=== PATIENT | female | born 1980 | race American Indian/Alaskan Native ===

== ENCOUNTER 2018-05-22 06:39 | Emergency (ER) | payer SELFPAY ==
[2018-05-22 06:43] VITALS: BMI 35.1
[2018-05-22 06:44] VITALS: TEMP 97.6
[2018-05-22] MEDS ORDERED: Sodium Chloride 0.9% 1,000 ML IV STA (07:18)
--- NOTE | 2018-05-22 07:36 | ED PDOC ---
HPI: Psych/Substance Abuse Time Seen by Provider: 05/22/18 07:05 Chief Complaint (Nursing): Alcohol Ingestion History Per: Patient, Other (brought EMS because she was found intoxicated.) History/Exam Limitations: clinical condition (patient intoxicated. on arrival she was uncooperative and aggressive. per staff she was spitting. ) Past Medical History Reviewed: Unable To Obtain Vital Signs: Last Vital Signs Temp 97.6 F 05/22/18 06:47 Pulse 96 H 05/22/18 06:47 Resp 17 05/22/18 06:47 BP 85/58 L 05/22/18 06:47 Pulse Ox 100 05/22/18 06:47 - Medical History PMH: Arthritis (both legs ?), Bipolar Disorder, Schizophrenia Denies: HIV, HTN, Chronic Kidney Disease, Seizures, Sexually Transmitted Disease - Family History Family History: States: Unknown Family Hx - Living Arrangements Living Arrangements: Other - Immunization History Hx Tetanus Toxoid Vaccination: No Hx Influenza Vaccination: No Hx Pneumococcal Vaccination: No - Home Medications Home Medications: Ambulatory Orders Medication Instructions Recorded Naproxen [Naprosyn] 1 tab PO BID PRN #20 tab 09/23/16 Polyethylene Glycol 3350 [Miralax] 17 gm PO DAILY #7 packet 09/23/16 Famotidine [Pepcid] 40 mg PO DAILY #20 tablet 11/08/16 - Allergies Allergies/Adverse Reactions: Allergies Allergy/AdvReac Type Severity Reaction Status Date / Time No Known Allergies Allergy Verified 05/22/18 06:49 Review of Systems Review Of Systems: ROS cannot be obtained secondary to pt's inabilty to answer questions. Physical Exam - Reviewed Nursing Documentation Reviewed: Yes Vital Signs Reviewed: Yes - Physical Exam Appears: Positive for: Well, No Acute Distress Head Exam: Positive for: ATRAUMATIC, NORMAL INSPECTION Skin: Positive for: Warm Eye Exam: Positive for: EOMI, PERRL Neck: Positive for: Supple Cardiovascular/Chest: Positive for: Regular Rate, Rhythm Respiratory: Positive for: CNT, Normal Breath Sounds Gastrointestinal/Abdominal: Positive for: Soft Extremity: Positive for: Normal ROM - Laboratory Results Result Diagrams: 05/22/18 08:00 05/22/18 08:00 - ECG O2 Sat by Pulse Oximetry: 100 - Progress Re-evaluation Time: 14:53 Condition: Improved Medical Decision Making Medical Decision Making: patient now steady in ambulation. Cooperative. Disposition - Clinical Impression Clinical Impression: Alcohol intoxication - Patient ED Disposition Is Patient to be Admitted: No Doctor Will See Patient In The: Office Counseled Patient/Family Regarding: Diagnosis, Need For Followup - Disposition Referrals: [facility] [Outside] Disposition: Routine/Home Disposition Time: 14:54 Condition: IMPROVED Instructions: Alcohol Abuse and Alcoholism (DC) Forms: [facility] (Polish) - POA Present On Arrival: None
[2018-05-22 08:14] LABS: BASO # 0.1 K/uL (0.0-0.2); EOS # 0.1 K/uL (0.0-0.7); EOS % 1.2 % (0.0-4.0); HEMOGLOBIN 12.6 g/dL (12.0-16.0); LYMPH # 1.5 K/uL (1.0-4.3); LYMPH % 26.6 % (20.0-40.0); MEAN CELL VOLUME 91.2 fl (81.0-99.0); MEAN CORPUSCULAR HEMOGLOBIN 28.2 pg (27.0-31.0); MEAN CORPUSCULAR HGB CONC 30.9 g/dL (33.0-37.0); MEAN PLATELET VOLUME 10.3 fl (7.2-11.7); MONO # 0.6 K/uL (0.0-0.8); MONO % 10.3 % (0.0-10.0); NEUT # 3.5 K/uL (1.8-7.0); NEUT % 60.9 % (50.0-75.0); NRBC % 0.2 % (0.0-0.0); RBC 4.47 Mil/uL (3.80-5.20); RED CELL DISTRIBUTION WIDTH 18.2 % (11.5-14.5); WHITE BLOOD COUNT 5.7 K/uL (4.8-10.8)
[2018-05-22 08:37] LABS: BLOOD UREA NITROGEN 12 mg/dl (7-17); CALCIUM 8.9 mg/dL (8.4-10.2); GFR NON-AFRICAN AMERICAN > 60
[2018-05-22 09:46] LABS: BARBITURATES, UR NEGATIVE (NEGATIVE); BENZODIAZEPINES, UR NEGATIVE (NEGATIVE); OPIATES, UR NEGATIVE (NEGATIVE); PHENCYCLIDINE, UR NEGATIVE (NEGATIVE)
[2018-05-22 16:35] VITALS: BP 132/84; PULSE 78; RESP 18; O2SAT 99
== END 2018-05-22 15:50 | disposition home or self-care (01) ==
LOC: H.ER 06:39
DX: F10.129 Alcohol abuse with intoxication, unspecified (principal)
CPT/HCPCS: 80048; 81025; 85025; 96372; 99285; G0480; J1630; J2060

== ENCOUNTER 2018-07-30 00:08 | Emergency (ER) | payer OTHER ==
[2018-07-30 00:08] VITALS: BMI 34.7
[2018-07-30 00:17] VITALS: RESP 16
[2018-07-30] MEDS ORDERED: Sodium Chloride 0.9% 1,000 ML IV STA (00:22)
--- NOTE | 2018-07-30 00:56 | ED PDOC ---
HPI: Influenza Time Seen by Provider: 07/30/18 00:20 Chief Complaint: Abdominal Pain Chief Complaint (Provider): Abdominal Pain History Per: Patient Exam Limitations: no limitations Symptoms include: cough, vomiting, diarrhea Additional complaint(s):: 37 y/o female, with no significant PMHx presents to the ED complaining of flu-like symptoms, onset x2 days ago. Patient reports having a cough associated with vomiting and diarrhea for x2 days. Patient reports having 10 episodes of vomiting as well as diarrhea. She is unsure if she saw a small amount of blood in either diarrhea or vomit. Patient also reports abdominal pain at times. She reports feeling dehydrated. Past Medical History Vital Signs: Last Vital Signs Temp 97.6 F 07/30/18 00:14 Pulse 90 07/30/18 00:14 Resp 16 07/30/18 00:14 BP 123/83 07/30/18 00:14 Pulse Ox 100 07/30/18 00:14 - Medical History PMH: Anxiety, Bipolar Disorder, HTN Denies: Diabetes, Hepatitis, HIV, Chronic Kidney Disease, Seizures, Sexually Transmitted Disease - Surgical History Surgical History: (x2) - Family History Family History: States: Unknown Family Hx, Diabetes - Social History Current smoker - smoking cessation education provided: Yes Alcohol: None Drugs: Denies - Immunization History Hx Tetanus Toxoid Vaccination: Yes Hx Influenza Vaccination: Yes Hx Pneumococcal Vaccination: Yes - Home Medications Home Medications: Ambulatory Orders Medication Instructions Recorded oxyCODONE/Acetaminophen [Percocet 1 tab PO Q6 #10 tab 05/28/17 5/325 mg Tab] Oseltamivir Phosphate [Tamiflu] 75 mg PO BID #10 capsule 07/27/17 Ondansetron ODT [Zofran ODT] 4 mg PO Q8 PRN #12 odt 08/07/17 Dicyclomine [Bentyl] 20 mg PO Q12 PRN #20 tab 08/16/17 Ondansetron ODT [Zofran ODT] 4 mg PO Q6H PRN #8 odt 08/16/17 Oseltamivir Phosphate [Tamiflu] 75 mg PO BID 5 Days capsule 09/03/17 Cephalexin [cephalexin] 500 mg PO BID 7 Days cap 04/03/18 Ibuprofen [Motrin] 600 mg PO TID 7 Days tab 04/03/18 Dicyclomine [Bentyl] 20 mg PO Q12 PRN #20 tab 07/30/18 Ondansetron ODT [Zofran ODT] 4 mg PO Q6 PRN #8 odt 07/30/18 Oseltamivir Cap [Tamiflu] 75 mg PO BID #10 cap 07/30/18 - Allergies Allergies/Adverse Reactions: Allergies Allergy/AdvReac Type Severity Reaction Status Date / Time No Known Allergies Allergy Verified 07/30/18 00:14 Review of Systems ROS Statement: Except As Marked, All Systems Reviewed And Found Negative Respiratory: Positive for: Cough Gastrointestinal: Positive for: Vomiting, Abdominal Pain, Diarrhea Physical Exam - Reviewed Nursing Documentation Reviewed: Yes Vital Signs Reviewed: Yes - Physical Exam Appears: Positive for: Well, Non-toxic, No Acute Distress Head Exam: Positive for: ATRAUMATIC, NORMOCEPHALIC Skin: Positive for: Normal Color, Warm, Dry Eye Exam: Positive for: EOMI, Normal appearance, PERRL ENT: Positive for: Other (dry mucous membranes) Cardiovascular/Chest: Positive for: Regular Rate, Rhythm. Negative for: Murmur Respiratory: Positive for: Normal Breath Sounds. Negative for: Respiratory Distress Gastrointestinal/Abdominal: Positive for: Normal Exam, Soft. Negative for: Tenderness Extremity: Positive for: Normal ROM. Negative for: Pedal Edema, Deformity Neurologic/Psych: Positive for: Alert, Oriented. Negative for: Motor/Sensory Deficits Medical Decision Making Medical Decision Making: Time: 00:22 Initial Impression: 37 y/o female with flu-like symptoms Initial Plan: * CMP * Lipase * Urine preg * ED Urine * CBC w/ diff * CXR * Bentyl 20 mg * IV Fluids * Zofran 4 mg * Influenza A B * UA 02:59 Labs reviewed significant for patient being flu positive. CXR shows no active disease. Patient reports improvement of symptoms and is stable upon discharge. Diagnosis is influenza and gastroenteritis. Scribe Attestation: Documented by Cristo Caraballo acting as a scribe for Santy Cool MD. Provider Scribe Attestation: All medical record entries made by the Scribe were at my direction and personally dictated by me. I have reviewed the chart and agree that the record accurately reflects my personal performance of the history, physical exam, medical decision making, and the department course for this patient. I have also personally directed, reviewed, and agree with the discharge instructions and disposition. - Laboratory Results Result Diagrams: 07/30/18 00:50 07/30/18 00:50 - ECG O2 Sat by Pulse Oximetry: 100 Disposition - Clinical Impression Clinical Impression: Influenza, Gastroenteritis - Patient ED Disposition Is Patient to be Admitted: No - Disposition Disposition: Routine/Home Disposition Time: 02:59 Condition: STABLE Additional Instructions: [facility], thank you for letting us take care of you today. Your provider was Santy Cool MD and you were treated for FLU LIKE SYMPTOMS. The emergency medical care you received today was directed at your acute symptoms. If you were prescribed any medication, please fill it and take as directed. It may take several days for your symptoms to resolve. Return to the Emergency Department if your symptoms worsen, do not improve, or if you have any other problems. Please contact your doctor or call one of the physicians/clinics you have been referred to that are listed on the Patient Visit Information form that is included in your discharge packet. Bring any paperwork you were given at discharge with you along with any medications you are taking to your follow up visit. Our treatment cannot replace ongoing medical care by a primary care provider outside of the emergency department. Thank you for allowing the [facility] team to be part of your care today. If you had an X-Ray or CT scan: A Radiologist will review the ED reading if any change in treatment is needed we will contact you. If you had a blood, urine, or wound culture: It will take several days for the results, if any change in treatment is needed we will contact you. If you had an STI test: It will take 48 hours for the results. Please call after 1 week if you have not heard back. Prescriptions: Dicyclomine [Bentyl] 20 mg PO Q12 PRN #20 tab PRN Reason: abdominal pain/diarrhea Ondansetron ODT [Zofran ODT] 4 mg PO Q6 PRN #8 odt PRN Reason: Nausea/Vomiting Oseltamivir Cap [Tamiflu] 75 mg PO BID #10 cap Instructions: Flu, Viral Gastroenteritis Forms: [facility] (Persian)
[2018-07-30 01:11] LABS: BASO % 0.5 % (0.0-2.0); EOS # 0.1 K/uL (0.0-0.7); EOS % 2.5 % (0.0-4.0); HEMOGLOBIN 11.8 g/dL (12.0-16.0); LYMPH % 21.2 % (20.0-40.0); MEAN CELL VOLUME 88.6 fl (81.0-99.0); MEAN CORPUSCULAR HEMOGLOBIN 29.1 pg (27.0-31.0); MEAN CORPUSCULAR HGB CONC 32.9 g/dL (33.0-37.0); MEAN PLATELET VOLUME 10.2 fl (7.2-11.7); MONO # 0.3 K/uL (0.0-0.8); NEUT # 3.1 K/uL (1.8-7.0); NEUT % 68.8 % (50.0-75.0); RBC 4.04 Mil/uL (3.80-5.20); RED CELL DISTRIBUTION WIDTH 16.1 % (11.5-14.5); WHITE BLOOD COUNT 4.5 K/uL (4.8-10.8)
[2018-07-30 01:29] LABS: ALB/GLOB RATIO 1.1 (1.0-2.1); ALBUMIN 3.9 g/dL (3.5-5.0); ALT/SGPT 34 U/L (9-52); AST/SGOT 28 U/L (14-36); BLOOD UREA NITROGEN 12 mg/dl (7-17); CALCIUM 9.2 mg/dL (8.4-10.2); GFR NON-AFRICAN AMERICAN > 60; LIPASE 40 U/L (23-300)
[2018-07-30 06:36] VITALS: BP 105/46; PULSE 67; TEMP 98.8; O2SAT 96
--- NOTE | 2018-07-30 08:13 | RAD ---
Date of service: 07/30/2018 HISTORY: cough COMPARISON: 09/03/2017 TECHNIQUE: Chest PA and lateral FINDINGS: LUNGS: No active pulmonary disease. PLEURA: No significant pleural effusion identified. No pneumothorax apparent. CARDIOVASCULAR: No aortic atherosclerotic calcification present. Normal cardiac size. No pulmonary vascular congestion. OSSEOUS STRUCTURES: No significant abnormalities. VISUALIZED UPPER ABDOMEN: Normal. OTHER FINDINGS: None. IMPRESSION: No active disease. No interval pathology noted.
== END 2018-07-30 06:35 | disposition home or self-care (01) ==
LOC: H.ER 00:08 → MERGE 00:08 → H.ER 06:35
DX: K52.9 Noninfective gastroenteritis and colitis, unspecified (principal); J11.1 Influenza due to unidentified influenza virus with other respiratory manifestations; I10 Essential (primary) hypertension
CPT/HCPCS: 71046; 80053; 83690; 85025; 87804; 99285; J2405; J7030

== ENCOUNTER 2018-09-23 19:06 | Emergency (ER) | payer SELFPAY ==
[2018-09-23 19:06] VITALS: BMI 35.1
[2018-09-23 19:17] VITALS: BP 152/60; PULSE 71; RESP 16; TEMP 98; O2SAT 100
--- NOTE | 2018-09-23 21:22 | ED PDOC ---
HPI: Psych/Substance Abuse Time Seen by Provider: 09/23/18 19:24 Chief Complaint (Nursing): Alcohol Ingestion Chief Complaint (Provider): Alcohol Ingestion ED Caveat: Intoxicated History/Exam Limitations: intoxication Current Symptoms Are (Timing): Still Present Additional Complaint(s): Patient is a 37 year old female, who presents to the emergency department for public intoxication. Patient was found intoxicated and sleeping in bus. She admits to drinking alcohol and has been to the emergency department for alcohol intoxication in the past. Patient has slurred speech but other whaley has no complaints. PMD: No provider Past Medical History Reviewed: Historical Data, Nursing Documentation, Vital Signs Vital Signs: Last Vital Signs Temp 98 F 09/23/18 19:14 Pulse 71 09/23/18 19:14 Resp 16 09/23/18 19:14 BP 152/60 H 09/23/18 19:14 Pulse Ox 100 09/23/18 19:14 - Medical History PMH: Anxiety, Arthritis (both legs ?), Bipolar Disorder, Schizophrenia Denies: HIV, HTN, Chronic Kidney Disease, Seizures, Sexually Transmitted Dis ease - Surgical History Surgical History: (x2) - Family History Family History: States: Unknown Family Hx, Diabetes - Immunization History Hx Tetanus Toxoid Vaccination: No Hx Influenza Vaccination: No Hx Pneumococcal Vaccination: No - Home Medications Home Medications: Ambulatory Orders Medication Instructions Recorded Naproxen [Naprosyn] 1 tab PO BID PRN #20 tab 09/23/16 Polyethylene Glycol 3350 [Miralax] 17 gm PO DAILY #7 packet 09/23/16 Famotidine [Pepcid] 40 mg PO DAILY #20 tablet 11/08/16 oxyCODONE/Acetaminophen [Percocet 1 tab PO Q6 #10 tab 05/28/17 5/325 mg Tab] Oseltamivir Phosphate [Tamiflu] 75 mg PO BID #10 capsule 07/27/17 Ondansetron ODT [Zofran ODT] 4 mg PO Q8 PRN #12 odt 08/07/17 Dicyclomine [Bentyl] 20 mg PO Q12 PRN #20 tab 08/16/17 Ondansetron ODT [Zofran ODT] 4 mg PO Q6H PRN #8 odt 08/16/17 Oseltamivir Phosphate [Tamiflu] 75 mg PO BID 5 Days capsule 09/03/17 Cephalexin [cephalexin] 500 mg PO BID 7 Days cap 04/03/18 Ibuprofen [Motrin] 600 mg PO TID 7 Days tab 04/03/18 Dicyclomine [Bentyl] 20 mg PO Q12 PRN #20 tab 07/30/18 Ondansetron ODT [Zofran ODT] 4 mg PO Q6 PRN #8 odt 07/30/18 Oseltamivir Cap [Tamiflu] 75 mg PO BID #10 cap 07/30/18 Ibuprofen [Motrin] 600 mg PO Q6 #20 tab 08/08/18 Promethazine HCl/Codeine 5 ml PO HS #80 ml 08/08/18 [Prometh-Codein 6.25-10 mg/5 ml] Amoxicillin [Amoxil 500 mg Cap] 500 mg PO TID #20 cap 09/03/18 Naproxen [Naprosyn] 500 mg PO Q12 PRN #20 tablet 09/03/18 traMADol [Ultram] 50 mg PO Q8 PRN #10 tab 09/03/18 - Allergies Allergies/Adverse Reactions: Allergies Allergy/AdvReac Type Severity Reaction Status Date / Time No Known Allergies Allergy Verified 09/23/18 19:14 Review of Systems ROS Statement: Except As Marked, All Systems Reviewed And Found Negative Neurological: Positive for: Change in Speech, Other (intoxication) Physical Exam - Reviewed Nursing Documentation Reviewed: Yes Vital Signs Reviewed: Yes - Physical Exam Appears: Positive for: Non-toxic, No Acute Distress Head Exam: Positive for: ATRAUMATIC, NORMOCEPHALIC Skin: Positive for: Normal Color, Warm, Dry Eye Exam: Positive for: Normal appearance, EOMI, PERRL ENT: Positive for: Normal ENT Inspection Neck: Positive for: Normal, Painless ROM, Supple Cardiovascular/Chest: Positive for: Regular Rate, Rhythm. Negative for: Murmur Respiratory: Positive for: Normal Breath Sounds. Negative for: Respiratory Distress Gastrointestinal/Abdominal: Positive for: Normal Exam, Soft. Negative for: Tenderness Back: Positive for: Normal Inspection. Negative for: L CVA Tenderness, R CVA Tenderness, Vertebral Tenderness Extremity: Positive for: Normal ROM. Negative for: Pedal Edema, Deformity Neurologic/Psych: Positive for: Alert, Oriented, Other (slurred speech). Negative for: Motor/Sensory Deficits - ECG O2 Sat by Pulse Oximetry: 100 (RA) Pulse Ox Interpretation: Normal Medical Decision Making Medical Decision Making: Time: 1932 Impression: 37 year old intoxicated female. Will order labs and alcohol drug screen. Plan: --Accucheck --Alcohol serum --Glucose 02:35 Patient is clinically sober and stable for discharge. Diagnosis is alcohol intoxication. Scribe Attestation: Documented by Jovi Marcano, acting as a scribe for Santy Cool MD. Provider Scribe Attestation: All medical record entries made by the Scribe were at my direction and personally dictated by me. I have reviewed the chart and agree that the record accurately reflects my personal performance of the history, physical exam, medical decision making, and the department course for this patient. I have also personally directed, reviewed, and agree with the discharge instructions and disposition. Disposition - Clinical Impression Clinical Impression: Alcohol abuse with intoxication - Patient ED Disposition Is Patient to be Admitted: No - Disposition Disposition: Routine/Home Disposition Time: 02:35 Condition: STABLE Additional Instructions: [facility], thank you for letting us take care of you today. Your provider was Santy Cool MD and you were treated for ETOH. The emergency medical care you received today was directed at your acute symptoms. If you were prescribed any medication, please fill it and take as directed. It may take several days for your symptoms to resolve. Return to the Emergency Department if your symptoms worsen, do not improve, or if you have any other problems. Please contact your doctor or call one of the physicians/clinics you have been referred to that are listed on the Patient Visit Information form that is included in your discharge packet. Bring any paperwork you were given at discharge with you along with any medications you are taking to your follow up visit. Our treatment cannot replace ongoing medical care by a primary care provider outside of the emergency department. Thank you for allowing the [facility] team to be part of your care today. If you had an X-Ray or CT scan: A Radiologist will review the ED reading if any change in treatment is needed we will contact you. If you had a blood, urine, or wound culture: It will take several days for the results, if any change in treatment is needed we will contact you. If you had an STI test: It will take 48 hours for the results. Please call after 1 week if you have not heard back. Instructions: Alcohol Use - When Is Drinking a Problem? Forms: [facility] (Senegalese)
== END 2018-09-24 02:35 | disposition home or self-care (01) ==
LOC: H.ER 19:06
DX: F10.129 Alcohol abuse with intoxication, unspecified (principal); F20.9 Schizophrenia, unspecified; F31.9 Bipolar disorder, unspecified; F41.9 Anxiety disorder, unspecified

== ENCOUNTER 2018-10-06 15:39 | Emergency (ER) | payer SELFPAY ==
[2018-10-06 15:39] VITALS: BMI 35.1
[2018-10-06 15:48] VITALS: BP 113/75; PULSE 68; RESP 16; TEMP 97.6; O2SAT 100
== END 2018-10-06 15:50 | disposition left against medical advice (07) ==
LOC: H.ER 15:39
DX: Z02.89 Encounter for other administrative examinations (principal)

== ENCOUNTER 2018-10-06 16:05 | Emergency (ER) | payer SELFPAY ==
[2018-10-06 16:05] VITALS: BMI 35.1
[2018-10-06 16:56] VITALS: PULSE 64; RESP 16; TEMP 98; O2SAT 98
[2018-10-06] MEDS ORDERED: Amoxicillin-Clav 875-125 mg Tab PO STA (17:22)
[2018-10-06] MEDS ORDERED: Amoxicillin-Clav 875-125 mg Tab PO ONE (17:26)
--- NOTE | 2018-10-06 17:42 | ED PDOC ---
HPI: Dental Pain/Injury Time Seen by Provider: 10/06/18 16:57 Chief Complaint (Nursing): Dental Pain Chief Complaint (Provider): Dental pain History Per: Patient History/Exam Limitations: no limitations Onset/Duration Of Symptoms: Days (intermittent for months, worse for the past 2x days), Intermittent Episodes Current Symptoms Are (Timing): Still Present Severity: Moderate Additional Complaint(s): 37 year old female with no pertinent past medical history presents to the ED for evaluation of left upper and lower dental pain intermittent for months, starting again 2x days. Patient states that she was seen here last month for the same complaint, and the medications she was prescribed, and her symptoms resolved, which is why she never followed up. Patient states that the symptoms started again 2x days ago. Patient states that the pain radiates to her left ear and gives her a left sided headache. Patient denies having any recent dental work, and states that she does have a dentist in [place]. Otherwise: (-) other complaints, (-) fevers, (-) sinusitis, (-) local trauma, (-) chest pain, (-) dyspnea (-) headache (-) earache (-) visual symptoms. Last known menstrual period: Last week. PMD: none Past Medical History Reviewed: Historical Data, Nursing Documentation, Vital Signs Vital Signs: Last Vital Signs Temp 98.0 F 10/06/18 16:52 Pulse 64 10/06/18 16:52 Resp 16 10/06/18 16:52 BP 157/94 H 10/06/18 16:52 Pulse Ox 98 10/06/18 16:52 KJ Report Viewed: Yes - Medical History PMH: Anxiety, Arthritis, Bipolar Disorder, Schizophrenia - Surgical History Surgical History: (x2) - Family History Family History: States: Diabetes - Social History Current smoker - smoking cessation education provided: Yes (heavy smoker) - Home Medications Home Medications: Ambulatory Orders Medication Instructions Recorded Naproxen [Naprosyn] 1 tab PO BID PRN #20 tab 09/23/16 Polyethylene Glycol 3350 [Miralax] 17 gm PO DAILY #7 packet 09/23/16 Famotidine [Pepcid] 40 mg PO DAILY #20 tablet 11/08/16 oxyCODONE/Acetaminophen [Percocet 1 tab PO Q6 #10 tab 05/28/17 5/325 mg Tab] Oseltamivir Phosphate [Tamiflu] 75 mg PO BID #10 capsule 07/27/17 Ondansetron ODT [Zofran ODT] 4 mg PO Q8 PRN #12 odt 08/07/17 Dicyclomine [Bentyl] 20 mg PO Q12 PRN #20 tab 08/16/17 Ondansetron ODT [Zofran ODT] 4 mg PO Q6H PRN #8 odt 08/16/17 Oseltamivir Phosphate [Tamiflu] 75 mg PO BID 5 Days capsule 09/03/17 Cephalexin [cephalexin] 500 mg PO BID 7 Days cap 04/03/18 Ibuprofen [Motrin] 600 mg PO TID 7 Days tab 04/03/18 Dicyclomine [Bentyl] 20 mg PO Q12 PRN #20 tab 07/30/18 Ondansetron ODT [Zofran ODT] 4 mg PO Q6 PRN #8 odt 07/30/18 Oseltamivir Cap [Tamiflu] 75 mg PO BID #10 cap 07/30/18 Ibuprofen [Motrin] 600 mg PO Q6 #20 tab 08/08/18 Promethazine HCl/Codeine 5 ml PO HS #80 ml 08/08/18 [Prometh-Codein 6.25-10 mg/5 ml] Amoxicillin [Amoxil 500 mg Cap] 500 mg PO TID #20 cap 09/03/18 Naproxen [Naprosyn] 500 mg PO Q12 PRN #20 tablet 09/03/18 traMADol [Ultram] 50 mg PO Q8 PRN #10 tab 09/03/18 Acetaminophen [Acetaminophen 8 650 mg PO Q8 PRN #21 tablet.er 10/06/18 Hour] Amoxicillin/Clavulanate [Augmentin 1 tab PO BID #14 tab 10/06/18 875 MG-125 MG] Naproxen 500 mg PO BID PRN #20 tab 10/06/18 - Allergies Allergies/Adverse Reactions: Allergies Allergy/AdvReac Type Severity Reaction Status Date / Time No Known Allergies Allergy Verified 10/06/18 16:52 Review of Systems ROS Statement: Except As Marked, All Systems Reviewed And Found Negative Constitutional: Negative for: Fever ENT: Positive for: Other (left upper and lower dental pain, radiates to left ear, causing left sided headache.). Negative for: Nose Pain Cardiovascular: Negative for: Chest Pain Respiratory: Negative for: Shortness of Breath Physical Exam - Reviewed Nursing Documentation Reviewed: Yes Vital Signs Reviewed: Yes - Physical Exam Comments: GENERAL APPEARANCE: Patient is awake, alert, oriented x 3, resting comfortably, in no acute distress. SKIN: Warm, dry; (-) cyanosis. ENMT: (+) diffuse tenderness to upper and lower left sided dentition. (-) sinus swelling or tenderness. (-) gingival swelling. (-) fluctuance. Pharynx: clear, uvula midline (-) tongue elevation, (-) exudate, (-) erythema. Airway patent: (-) stridor. (-) Submandibular or submental neck swelling (-) pseudomembranes NECK: Supple, FROM (-) tenderness, (-) lymphadenopathy LUNGS: clear to auscultation bilaterally (-) rales, (-) wheezing, (-) rhonchi. Respirations even and nonlabored, speaking in full sentences. CARDIAC: RRR - ECG O2 Sat by Pulse Oximetry: 98 (RA) Pulse Ox Interpretation: Normal Medical Decision Making Medical Decision Makin Clinical impression: 37 year old female with a toothache, possible dental infection. Initial plan: * augmentin 875-125 mg 1 tab PO * toradol 30 mg IM * tylenol 325 mg tab 650 mg PO * reevaluation 1750 Repeat BP: 138/76 On re-evaluation, patient reports improvement of symptoms. On exam, patient remains AAOx3, in no acute distress. Vitals stable. Lab/Diagnostic results d/w the patient in great detail. Diagnosis of toothache, probable dental infection d/w the patient. Based on history, exam and diagnostic results, plan will be for outpatient follow up with dental. Patient instructed to follow-up with pmd / referral provided / the clinic in 1- 2 days without fail. Advised to take medication as prescribed. Return to the emergency room at any time for any new or worsening symptoms. Patient states she fully agrees with and understands discharge instructions. States that she agrees with the plan and disposition. Verbalized and repeated discharge instructions and plan. I have given the patient opportunity to ask any additional questions. ScribeAttestation: Documented byShirley Wheeler, acting as a scribe for Shirley Anderson Provider ScribeAttestation: All medical record entries made by the Scribe were at my direction and personally dictated by me. I have reviewed the chart and agree that the record accurately reflects my personal performance of the history, physical exam, medic al decision making, and the department course for this patient. I have also personally directed, reviewed, and agree with the discharge instructions and disposition. Disposition - Clinical Impression Clinical Impression: Pain, dental - Patient ED Disposition Is Patient to be Admitted: No Counseled Patient/Family Regarding: Studies Performed, Diagnosis, Need For Followup, Rx Given - Disposition Referrals: your, dentist [Other] Disposition: Routine/Home Disposition Time: 17:50 Condition: STABLE Additional Instructions: The emergency medical care you received today was directed at your acute symptoms. If you were prescribed any medication, please fill it and take as directed. It may take several days for your symptoms to resolve. Return to the Emergency Department if your symptoms worsen, do not improve, or if you have any other problems. Please contact your doctor in 2 days for re-evaluation and follow up / or call one of the physicians/clinics you have been referred to that are listed on the Patient Visit Information form that is included in your discharge packet. Bring any paperwork you were given at discharge with you along with any medications you are taking to your follow up visit. Our treatment cannot replace ongoing medical care by a primary care provider (PCP) outside of the emergency department. Prescriptions: Acetaminophen [Acetaminophen 8 Hour] 650 mg PO Q8 PRN #21 tablet.er PRN Reason: Pain, Moderate (4-7) Amoxicillin/Clavulanate [Augmentin 875 MG-125 MG] 1 tab PO BID #14 tab Naproxen 500 mg PO BID PRN #20 tab PRN Reason: Pain, Moderate (4-7) Instructions: Dental Pain (DC) Forms: [facility] (Hong Konger) Print Language: GEORGIAN - POA Present On Arrival: None
[2018-10-06 17:57] VITALS: BP 138/76
== END 2018-10-06 18:07 | disposition home or self-care (01) ==
LOC: H.ER 16:05
DX: K08.89 Other specified disorders of teeth and supporting structures (principal); F17.200 Nicotine dependence, unspecified, uncomplicated; Z86.59 Personal history of other mental and behavioral disorders
CPT/HCPCS: 96372; 99282; J1885